=== PATIENT | male | born 1945 | race Caucasian/White ===

== ENCOUNTER → 2023-12-23 06:52 | Outpatient (REF) | payer MEDICARE, OTHER, SELFPAY ==
[2023-12-23 07:37] LABS: % Basophils 0.7 % (0-2); % Eosinophils 2.8 % (0-6); % Immature Granulocytes 0.6 % (0-0.5); % Lymphocytes 26.4 % (20.5-51.1); % Neutrophils 53.5 % (42.2-75.2); Absolute Basophils 0.1 10^3/uL (0-0.2); Absolute Eosinophils 0.2 10^3/uL (0-0.7); Absolute Lymphocytes 1.8 10^3/uL (1.2-3.4); Absolute Monocytes 1.1 10^3/uL (0.1-0.6); Absolute Neutrophils 3.6 10^3/uL (1.4-6.5); Hematocrit 34.8 % (39.0-52.0); Hemoglobin 11.5 g/dL (13.0-18.0); Mean Corpuscular Hgb 33.2 pg (27.0-31.0); Mean Corpuscular Volume 100.6 fL (80.0-94.0); Mean Platelet Volume 10.5 fL (7.4-10.4); Nucleated Red Blood Cells % 0 % (-); Platelet Count 168 10^3/uL (130-400); Red Blood Cell Count 3.46 10^6/uL (4.70-6.10); Red Cell Dist. Width 13.1 % (11.5-14.5); White Blood Cell Count 6.7 10^3/uL (4.8-10.8)
[2023-12-23 07:59] LABS: Calcium 9.2 mg/dl (8.4-10.2)
[2023-12-23 08:00] LABS: ALT (SGPT) 18 U/L (0-50); AST (SGOT) 19 U/L (17-59); Albumin 3.9 g/dl (3.5-5.0); Alkaline Phosphatase 56 U/L (38-126); Blood Urea Nitrogen 46 mg/dl (9-20); Calcium 8.8 mg/dl (8.4-10.2); Carbon Dioxide 24 mmol/L (22-30); Chloride 105 mmol/L (98-107); Glucose 224 mg/dl (70-99); Phosphorus 3.7 mg/dl (2.5-4.5); Potassium 4.9 mmol/L (3.5-5.1); Sodium 135 mmol/L (135-145); Total Bilirubin 0.5 mg/dl (0.2-1.3); Total Protein 6.2 g/dl (6.3-8.2)
[2023-12-23 08:56] LABS: Glycohemoglobin (HgbA1c) 7.8 % (4.0-5.6)
[2023-12-23 09:16] LABS: Intact PTH 300.3 pg/ml (13.6-85.8)
== END ==
LOC: REG 06:52
PROVIDERS: ATTENDING PHYSICIAN Family Medicine; FAMILY PHYSICIAN Specialist
DX: E11.22 Type 2 diabetes mellitus with diabetic chronic kidney disease (principal); N20.0 Calculus of kidney
CPT/HCPCS: 36415; 80053; 80069; 83036; 83970; 84550; 85025

== ENCOUNTER 2024-01-26 03:36 | Emergency (ER) | payer MEDICARE, OTHER, SELFPAY ==
[2024-01-26] VITALS (7 sets, daily range): BP systolic 125–175; BP diastolic 58–72; BMI 41.5
[2024-01-26 03:44] LABS: Glucose - Point of Care 111 mg/dl (70-99)
[2024-01-26 03:57] LABS: % Basophils 0.4 % (0-2); % Eosinophils 2.8 % (0-6); % Immature Granulocytes 0.3 % (0-0.5); % Lymphocytes 27.5 % (20.5-51.1); % Monocytes 13.8 % (1.7-9.3); % Neutrophils 55.2 % (42.2-75.2); Absolute Eosinophils 0.2 10^3/uL (0-0.7); Absolute Lymphocytes 1.9 10^3/uL (1.2-3.4); Absolute Neutrophils 3.8 10^3/uL (1.4-6.5); Hematocrit 33.5 % (39.0-52.0); Hemoglobin 11.4 g/dL (13.0-18.0); Mean Corpuscular Hgb 33.2 pg (27.0-31.0); Mean Corpuscular Volume 97.7 fL (80.0-94.0); Mean Platelet Volume 9.7 fL (7.4-10.4); Nucleated Red Blood Cells % 0 % (-); Platelet Count 160 10^3/uL (130-400); Red Blood Cell Count 3.43 10^6/uL (4.70-6.10); Red Cell Dist. Width 13.1 % (11.5-14.5); White Blood Cell Count 6.9 10^3/uL (4.8-10.8)
[2024-01-26 04:13] LABS: ALT (SGPT) 18 U/L (0-50); AST (SGOT) 19 U/L (17-59); Albumin 3.8 g/dl (3.5-5.0); Alkaline Phosphatase 59 U/L (38-126); Blood Urea Nitrogen 62 mg/dl (9-20); Carbon Dioxide 26 mmol/L (22-30); Chloride 103 mmol/L (98-107); Estimated Creatinine Clearance 28 ml/min; Glucose 111 mg/dl (70-99); Potassium 4.2 mmol/L (3.5-5.1); Sodium 137 mmol/L (135-145); Total Bilirubin 0.5 mg/dl (0.2-1.3); Total Protein 6.2 g/dl (6.3-8.2); eGFR 24.02
--- NOTE | 2024-01-26 05:57 | ED.GENMED ---
History of Present Illness
General
Chief Complaint: Blood Sugar Problem
Time Seen by Provider: 01/26/24 05:57
Travel History
Have you had any contact with someone who has COVID-19?: No
Do you have any symptoms of coronavirus? Fever > 100 degrees, chills, cough, shortness of breath, sore throat, loss of taste or smell, muscle aches, or headache?: No
History of Present Illness
History of Present Illness:
HPI: The patient presents with a syncopal event. This happened around 3 AM. He states that he is an insulin-dependent diabetic and had a lot to eat last night but primarily seafood (lot of protein with minimal carbohydrates). He noted that his
blood sugar was lower than normal prior to bedtime. At 3 AM he got up to go to the bathroom but noted that he fell to the ground and passed out. He remembers not having any chest pain or shortness of breath. Around the time this happened, he
was given a Elmer tablet and blood sugar was found to be in the 200s.
EXAM:
GENERAL: Well appearing in no distress
HEENT: Moist oral mucosa
CARDIOVASCULAR: No murmurs, normal heart rate, regular rhythm, No chest wall tenderness
PULMONARY: No respiratory distress, breath sounds are clear and equal
ABDOMEN: Soft with no peritoneal signs, no tenderness
NEUROLOGIC: Excellent strength all extremities, no coordination deficits
PSYCHIATRIC: Appropriate mental status, normal insight and judgement
EXTREMITIES: Nontender, 2+ bilateral lower edema, moves all extremities equally
SKIN: No rash, no lesions
TIME OF INITIAL ENCOUNTER: 6 AM
NUMBER AND COMPLEXITY OF PROBLEMS ADDRESSED AT THE ENCOUNTER
� Chronic conditions affecting care: High blood pressure, hyperlipidemia, GERD, IDDM, CKD
� Acute Exacerbation and/or Progression of Chronic Illness: This is an acute problem
� Differential Diagnosis includes: Hypoglycemia, hyperglycemia, electrolyte abnormality, dysrhythmia
AMOUNT AND/OR COMPLEXITY OF DATA TO BE REVIEWED AND ANALYZED
� I performed an independent evaluation of and my interpretation is:
EKG: While I was in the room, I reviewed the cardiac monitoring which shows that he is in a sinus rhythm with rates of 69
CT:
X-rays:
Laboratory Studies: Mild anemia noted with hemoglobin 11.4, electrolytes normal but BUN is 62 and creatinine is 2.6
Other:
� Review of other/old records: I reviewed records, the patient's renal function has been impaired since 2018
� Clinical information was obtained by an independent historian: I spoke to the at bedside
� Prescriptions/Medications Considered but not given:
� Further testing considered but not performed:
RISK OF COMPLICATIONS AND/OR MORBIDITY OR MORTALITY OF PATIENT MANAGEMENT
� Social determinants of health affecting care: Lives at home
� Discussion with other providers:
� Escalation of care including admission/observation vs risk of discharge considered: The patient's blood work is unchanged from prior. Other than mild hypertension, his vital signs are normal. He currently has no further
symptoms. He did mention his lower extremity edema however this is chronic. He has remained symptom-free throughout his stay in the ED. He never had any chest pain or shortness of breath.
Past History
Past History
ED Past Medical History: GERD, HTN, Hypercholesterolemia, IDDM and Other (Hemorrhoids)
ED Past Surgical History: Other (Hemorrhoidectomy, vasectomy, tonsillectomy, cataracts)
Social History
Tobacco: Non-smoker
Alcohol: Occasional
Personal:
Living: with family
Family History
Family History: Diabetes and CAD
Phy Exam
Physical Exam
Physical Exam:
See HPI
Course
Orders/Labs/Results
Orders:
Orders
01/26/24 03:41
Bedside Glucose- Treatment ONCE
01/26/24 03:52
CMP [Comprehensive Metabolic Panel] Urgent
Complete Blood Count/With Diff Urgent
Abnormal Lab Results
01/26/24 01/26/24
03:42 03:52
RBC 3.43 L 10^6/uL
(4.70-6.10)
Hgb 11.4 L g/dL
(13.0-18.0)
Hct 33.5 L %
(39.0-52.0)
MCV 97.7 H fL
(80.0-94.0)
MCH 33.2 H pg
(27.0-31.0)
Absolute Monos (auto) 1.0 H 10^3/uL
(0.1-0.6)
Monocytes % 13.8 H %
(1.7-9.3)
BUN 62 H mg/dl
(9-20)
Creatinine 2.6 H mg/dL
(0.7-1.3)
Glucose 111 H mg/dl
(70-99)
Total Protein 6.2 L g/dl
(6.3-8.2)
POC Glucose 111 H mg/dl
(70-99)
01/26/24 03:52
01/26/24 03:52
Vital Signs
Initial and Last Documented VS:
Initial Vital Signs
Temp Pulse Resp BP Pulse Ox
98 F 70 14 175/72 95
01/26/24 03:40 01/26/24 03:40 01/26/24 03:40 01/26/24 03:40 01/26/24 03:40
Last Documented Vital Signs
Temp Pulse Resp BP Pulse Ox
98 F 65 18 145/68 95
01/26/24 03:40 01/26/24 06:00 01/26/24 06:00 01/26/24 06:00 01/26/24 03:40
*Critical Care Note
Total Time (30-74mins, 75-104mins- exclusive of procedures): Not Applicable
ED Attending Note
-
Portions of this chart may have been created with voice recognition software.� Occasional wrong word or��sound alike� substitutions may have occurred due to the inherent limitations of voice recognition software.
Discharge Plan
Departure
Patient Disposition: Home (Routine Discharge)
Date of Disposition: 01/26/24
Time of Disposition: 06:17
Patient with high blood pressure during this ER visit?: Yes
Discharge Problem:
Syncope and collapse
Instructions: Syncope (Fainting) (DC)
Prescriptions:
No Action
furosemide 40 MG tablet
40 mg PO DAILY
atorvastatin 40 MG tablet
40 mg PO HS
aspirin 81 MG tablet,delayed release (DR/EC)
81 mg PO QPM
acetaminophen [Tylenol Extra Strength] 500 MG tablet
1,000 mg PO DAILYPRN PRN (Reason: mild pain)
potassium citrate 10 MEQ tablet extended release
10 meq PO BID
labetalol 300 MG tablet
300 mg PO BID
terazosin [Hytrin] 10 MG capsule
10 mg PO DAILY
insulin lispro [Humalog KwikPen Insulin] 100 UNIT/ML insulin pen
60 units SC QPM
Patient Comments:
dinner dose
insulin lispro [Humalog KwikPen Insulin] 100 UNIT/ML insulin pen
30 units SC BID@0800,1200
cholecalciferol (vitamin D3) 1,000 UNITS tablet
1,000 units PO DAILY
insulin glargine [Lantus Solostar U-100 Insulin] 300 UNITS/3 ML insulin pen
40 units SC BID
Patient Comments:
pt takes at 0600 and 1600
Mucilax
1 dose PO BID
amoxicillin-pot clavulanate 1 TABLET tablet
1 tab PO Q12 3 Days Qty: 5 0RF
Referrals:
Steven Spann MD [Family Provider] -
Activity Restrictions/Additional Instructions:
Follow-up with primary care doctor. Return here if worse. Your blood work shows no significant changes from prior.
Interventions
Interventions:
*Risk Screen - Suicide Last Done: 01/26/24 03:40
*General Assessment Last Done: 01/26/24 03:40
*Neglect/Abuse Screening Last Done: 01/26/24 03:40
ED- Fall Risk Assessment Last Done: 01/26/24 03:40
*ED COVID-19 Vaccine History Last Done: 01/26/24 03:40
ED- Neurological Assessment Last Done: 01/26/24 03:47
== END 2024-01-26 06:40 | disposition home or self-care (01) ==
LOC: EMR 03:36
PROVIDERS: Student in an Organized Health Care Education/Training Program; EMERGENCY PHYSICIAN Emergency Medicine; FAMILY PHYSICIAN Family Medicine
DX: R55 Syncope and collapse (principal); R60.0 Localized edema; K21.9 Gastro-esophageal reflux disease without esophagitis; E78.00 Pure hypercholesterolemia, unspecified; E11.22 Type 2 diabetes mellitus with diabetic chronic kidney disease; N18.9 Chronic kidney disease, unspecified; I12.9 Hypertensive chronic kidney disease with stage 1 through stage 4 chronic kidney disease, or unspecified chronic kidney disease; D64.9 Anemia, unspecified
CPT/HCPCS: 99283; 80053; 82962; 85025

== ENCOUNTER 2024-02-22 23:17 | Inpatient (IN) | payer MEDICARE, OTHER, SELFPAY ==
[2024-02-22] VITALS (8 sets, daily range): BP systolic 110–141; BP diastolic 44–75; BMI 40.1; BMI 41.1
--- NOTE | 2024-02-22 19:08 | ED.GENMED ---
History of Present Illness
General
Chief Complaint: Breathing Problem
Time Seen by Provider: 02/22/24 18:49
Travel History
Have you had any contact with someone who has COVID-19?: No
Do you have any symptoms of coronavirus? Fever > 100 degrees, chills, cough, shortness of breath, sore throat, loss of taste or smell, muscle aches, or headache?: Yes
Symptoms:: SOB
History of Present Illness
History of Present Illness:
79-year-old male with history of insulin-dependent diabetes, morbid obesity, hypertension, and chronic kidney disease presents to the emergency department due to fevers and chills/rigors developing over the past 48 hours. Patient states he has had
tooth pain for at least the past week,, was scheduled to get a root canal by his dentist earlier this week however this was delayed for unknown reasons. He is not currently on antibiotics. Denies any coughing, chest pain, dysuria, rashes, or open
wounds. He does have chronic venous stasis of bilateral lower extremities but states it is improved compared to normal
Past History
Past History
ED Past Medical History: GERD, HTN, Hypercholesterolemia, IDDM and Other (Hemorrhoids)
ED Past Surgical History: Other (Hemorrhoidectomy, vasectomy, tonsillectomy, cataracts)
Social History
Tobacco: Non-smoker
Alcohol: Occasional
Personal:
Living: with family
Family History
Family History: Diabetes and CAD
Review of Systems
Review of Systems
Allergies reviewed?: Yes
All Other Systems: ROS reviewed and negative except as documented in HPI and ROS
Phy Exam
Physical Exam
Physical Exam:
GEN: Well appearing, NAD, WDWN
Eyes: PERRLA, EOMs intact, no scleral icterus
HENT: NCAT, oral mucosa moist, no JVD, no cervical adenopathy. Dentition is poor, no obvious dental abscess
Lungs: CTAB, no wheezes, rales, rhonchi, normal chest wall excursion
Cardiac: Tachycardic, regular, questionable systolic murmur
Abdomen: S, NT, ND, NABS, no masses or hepatosplenomegaly
Neuro: AO x 3
MSK: No gross deformity or ecchymosis. No edema. No digital clubbing
Skin: Bilateral venous stasis dermatitis without evidence for overt cellulitis/secondary infection
Psych: Calm, cooperative, proper hygiene
Scores
Heart Failure Risk
Heart Failure Risk Score: Not Applicable
Course
Orders/Labs/Results
Orders:
Orders
02/22/24 18:55
Electrocardiogram (*1) Urgent
Reason for Study: Other
Other Reason for Exam: Possible Sepsis
02/22/24 18:56
EKG- Treatment ONCE
02/22/24 18:58
Complete Blood Count/With Diff Urgent
Comprehensive Metabolic Panel Urgent
Lactic Acid Q4H
Comment: ON ICE, CANCEL 2ND ORDER IF FIRST LACTIC ACID LEVEL <2
Blood Culture Q30M
JACKIE Source: Blood/Venous
Specimen Description:
Comment: FROM 2 SEPARATE SITES
Blood Culture Q30M
JACKIE Source: Blood/Venous
Specimen Description:
Comment: FROM 2 SEPARATE SITES
02/22/24 19:08
CR Chest - 2 Views Urgent
Comment:
Reason For Exam: fever
02/22/24 19:26
COVID-19 Antigen Urgent
Source: Nasal Swab
Influenza A+B Rapid Molecular Urgent
JACKIE Source: Nasal Swab
Specimen Description:
02/22/24 19:27
0.9% Sodium Chloride 1000 ml [Nss] 1,000 ml IV BOLUS
02/22/24 20:05
Acetaminophen [Tylenol] 1,000 mg PO NOW STA
02/22/24 20:22
Urinalysis Reflex To Culture Urgent
Date Specimen was Collected: 02/22/24
Time Specimen was Collected: 19:24
Urine Microscopic Reflex Cult Urgent
02/22/24 20:28
CT Facial Bones W/o Iv Contras Urgent
Comment:
Reason For Exam: R dental infection lower
02/22/24 21:39
Ampicillin/Sulbactam 3 G [Unasyn] 3 gm 0.9% Sodium Chloride 100 ml [Nss] 100 ml IV NOW
02/22/24 22:05
Ondansetron Injectable [Zofran] 4 mg .ROUTE .[facility]
02/22/24 22:50
Admit/Transfer Patient As Directed
Co-Sign Provider:
Level of Care: Inpatient admission
Assign to:: Medical/Surgical
Physician / Group: hospitalist
Diagnosis: dental abscess
Reason for Hospitalization: sepsis without shock
Expected length of stay greater than two midnights?: Yes
ELOS- Estimated Length of Stay in days: 2
I certify the patient meets the requirements for IP care: Yes
02/22/24 22:52
Code Status As Directed
Resuscitation Status: Full Code
02/22/24 23:04
Lactic Acid Q4H
Comment: ON ICE, CANCEL 2ND ORDER IF FIRST LACTIC ACID LEVEL <2
Abnormal Lab Results
02/22/24 02/22/24
18:58 20:22
RBC 3.60 L 10^6/uL
(4.70-6.10)
Hgb 11.8 L g/dL
(13.0-18.0)
Hct 33.7 L %
(39.0-52.0)
MCH 32.8 H pg
(27.0-31.0)
Plt Count 127 L 10^3/uL
(130-400)
Abs Immat Gran (auto) 0.1 H 10^3/uL
(0-0.05)
Absolute Lymphs (auto) 0.3 L 10^3/uL
(1.2-3.4)
Absolute Monos (auto) 0.9 H 10^3/uL
(0.1-0.6)
Immature Gran % 1.0 H %
(0-0.5)
Neutrophils % 79.6 H %
(42.2-75.2)
Lymphocytes % 4.9 L %
(20.5-51.1)
Monocytes % 13.7 H %
(1.7-9.3)
Sodium 133 L mmol/L
(135-145)
BUN 59 H mg/dl
(9-20)
Creatinine 3.0 H mg/dL
(0.7-1.3)
Glucose 205 H mg/dl
(70-99)
Lactic Acid 3.8 H mmol/L
(0.7-2.0)
Total Protein 6.2 L g/dl
(6.3-8.2)
Urine Ketones Trace A
(Negative)
Leukocyte Esterase Rfl Trace A
(Negative)
Urine Bacteria (Reflex) Few A
(Negative)
Urine Glucose 1+ A
(Negative)
Urine Albumin (Reflex) 1+ A
(Neg - Trace)
02/22/24 18:58
02/22/24 18:58
Vital Signs
Initial and Last Documented VS:
Initial Vital Signs
Temp Pulse Resp BP Pulse Ox
103.2 F H 104 20 137/75 93
02/22/24 18:39 02/22/24 18:39 02/22/24 18:39 02/22/24 18:39 02/22/24 18:39
Last Documented Vital Signs
Temp Pulse Resp BP Pulse Ox
99.9 F 85 24 113/44 94
02/22/24 21:31 02/22/24 23:00 02/22/24 23:00 02/22/24 23:00 02/22/24 23:15
MDM/Problems Addressed
MDM/Problems Addressed:
79-year-old male presents febrile with rigors, source is most likely right lower dental abscess. Certainly concerning considering migration and his immunocompromise with insulin-dependent diabetes that this can represent bacteremia. I do not hear
an audible murmur however cannot discount the possibility for endocarditis. Patient will be admitted to the hospital service on broad-spectrum IV antibiotics
*Critical Care Note
Total Time (30-74mins, 75-104mins- exclusive of procedures): Not Applicable
ED Attending Note
-
Portions of this chart may have been created with voice recognition software.� Occasional wrong word or��sound alike� substitutions may have occurred due to the inherent limitations of voice recognition software.
Discharge Plan
Departure
Patient Disposition: Admit
Date of Disposition: 02/22/24
Time of Disposition: 22:09
Admit to: Med/Surg
Presentation/result/management discussed w/ accepting MD/DO: Hospitalist
Discharge Problem:
Dental abscess
Interventions
Interventions:
*Risk Screen - Suicide Last Done: 02/22/24 21:32
*General Assessment Last Done: 02/22/24 21:32
*Neglect/Abuse Screening Last Done: 02/22/24 21:32
ED- Fall Risk Assessment Last Done: 02/22/24 21:32
*ED COVID-19 Vaccine History Last Done: 02/22/24 21:32
ED- Cardiac Assessment Last Done: 02/22/24 23:15
ED- Pulmonary Assessment Last Done: 02/22/24 23:15
[2024-02-22 19:09] LABS: % Basophils 0.4 % (0-2); % Eosinophils 0.4 % (0-6); % Lymphocytes 4.9 % (20.5-51.1); % Monocytes 13.7 % (1.7-9.3); % Neutrophils 79.6 % (42.2-75.2); Absolute Immature Granulocytes 0.1 10^3/uL (0-0.05); Absolute Lymphocytes 0.3 10^3/uL (1.2-3.4); Absolute Monocytes 0.9 10^3/uL (0.1-0.6); Absolute Neutrophils 5.4 10^3/uL (1.4-6.5); Hematocrit 33.7 % (39.0-52.0); Hemoglobin 11.8 g/dL (13.0-18.0); Mean Corpuscular Hgb 32.8 pg (27.0-31.0); Mean Corpuscular Volume 93.6 fL (80.0-94.0); Mean Platelet Volume 10.2 fL (7.4-10.4); Nucleated Red Blood Cells % 0 % (-); Platelet Count 127 10^3/uL (130-400); White Blood Cell Count 6.8 10^3/uL (4.8-10.8)
[2024-02-22 19:20] LABS: Lactic Acid 3.8 mmol/L (0.7-2.0)
[2024-02-22 19:22] LABS: ALT (SGPT) 36 U/L (0-50); AST (SGOT) 47 U/L (17-59); Albumin 3.9 g/dl (3.5-5.0); Alkaline Phosphatase 63 U/L (38-126); Blood Urea Nitrogen 59 mg/dl (9-20); Calcium 9.5 mg/dl (8.4-10.2); Carbon Dioxide 23 mmol/L (22-30); Chloride 99 mmol/L (98-107); Estimated Creatinine Clearance 24 ml/min; Glucose 205 mg/dl (70-99); Sodium 133 mmol/L (135-145); Total Bilirubin 0.7 mg/dl (0.2-1.3); Total Protein 6.2 g/dl (6.3-8.2); eGFR 20.23
[2024-02-22] MEDS: NSS 1000 IV (19:59)
[2024-02-22] MEDS: TYLENOL 1000 MG PO (20:14)
[2024-02-22 20:48] LABS: COVID-19 Antigen Negative (Negative)
[2024-02-22 20:53] LABS: Urine Albumin 1+ (Neg - Trace); Urine Bilirubin Negative (Negative); Urine Character Clear (Clear); Urine Color Yellow; Urine Glucose 1+ (Negative); Urine Ketone Trace (Negative); Urine Leukocyte Trace (Negative); Urine Nitrite Negative (Negative); Urine Occult Blood Negative (Negative); Urine Urobilinogen Negative (Neg - 1+)
[2024-02-22 21:21] LABS: Urine Bacteria Few (Negative); Urine Granular Cast 0-2 /LPF (0); Urine Mucus Moderate; Urine Red Blood Cell 0-2 /HPF (0-2); Urine White Cell 0-2 /HPF (0-5)
[2024-02-22] MEDS: UNASYN IV (21:51)
--- NOTE | 2024-02-22 22:34 | HPS.HSE ---
Family Physician
-
Family Physician: Steven Spann
Chief Complaint
-
Tooth abscess
History of Present Illness
This is a patient male with past medical history of CKD stage IV, hypertension, GERD, insulin-dependent diabetes presenting to the emergency department with tooth pain for the last 3 to 4 days consistent with a dental abscess.
Patient reported that there was plan to have a root canal done on his right lower tooth on Friday However for the last 3 days has been having severe pain in that tooth and associated fevers chills and rigors. He reports he has had prior infections
and abscesses and this was very similar to those prior infections. Had Tmax of 103 at home. Denies cough, wheezing or shortness of breath.
In ED had a temperature of 103. Hemodynamically stable. Chest Xray was clear. CT facial showed suspected 3.2 mm dental abscess around the root of the right mandibular central incisor. Mild cellulitis in the soft tissues overlying the anterior
mandible.
Medical History
Past Medical History
Past Medical History: Reports GERD, HTN and IDDM
Additional Past Medical History:
CKD 4
Past Surgical History: Reports None
Social History
Tobacco: Non-smoker
Alcohol: Occasional
Drug: None
Personal:
Living: With Family
Employment: Retired
Family History
Family History: Not pertinent
Allergies / Home Medications
Allergies reflects when Allergies were last updated in [employer].
Home Medications with original date entered in [employer]
Allergy/Medication List:
Allergies
Allergy/AdvReac Type Severity Reaction Status Date / Time
quinapril [From Accupril] Allergy EDEMA/HIVES Verified 01/26/24 03:43
Home Medications
Mucilax 1 dose PO BID Constipation 01/22/21
acetaminophen 500 mg tablet (Tylenol Extra Strength) 1,000 mg PO DAILYPRN PRN mild pain 01/22/21
aspirin 81 mg tablet,delayed release 81 mg PO QPM Blood clot prevention/tx 01/22/21
atorvastatin 40 mg tablet 40 mg PO HS High cholesterol 01/22/21
cholecalciferol (vitamin D3) 25 mcg (1,000 unit) tablet 1,000 units PO DAILY Supplement 01/22/21
furosemide 40 mg tablet 40 mg PO DAILY Fluid retention/Swelling 01/22/21
insulin glargine 100 unit/mL (3 mL) subcutaneous pen (Lantus Solostar U-100 Insulin) 40 units SC BID Diabetes 01/22/21
insulin lispro 100 unit/mL subcutaneous pen (Humalog KwikPen (U-100) Insulin) 30 units SC BID@0800,1200 Diabetes 01/22/21
insulin lispro 100 unit/mL subcutaneous pen (Humalog KwikPen (U-100) Insulin) 60 units SC QPM Diabetes 01/22/21
labetalol 300 mg tablet 300 mg PO BID Blood pressure 01/22/21
potassium citrate 10 mEq (1,080 mg) tablet,extended release 10 meq PO BID Electrolyte Repletion 01/22/21
terazosin 10 mg capsule (Hytrin) 10 mg PO DAILY prostate 01/22/21
amoxicillin 875 mg-potassium clavulanate 125 mg tablet 1 tab PO Q12 3 days #5 tabs 01/24/21
Review of Systems
-
History Source: Patient
Constitutional: Reports Fever
EENT: Reports Mouth Pain
Respiratory: Reports No Symptoms
Cardiac: Reports No Symptoms
Abdomen/GI: Reports No Symptoms
: Reports No Symptoms
Musculoskeletal: Reports No Symptoms
Skin: Reports No Symptoms
Neurological: Reports No Symptoms
Endocrine: Reports No Symptoms
Hematologic/Lymphatic: Reports No Symptoms
Psych: Reports No Symptoms
Physical Exam
Vital Signs
Vital Signs
Temp Pulse Resp BP Pulse Ox
99.9 F 89 21 110/50 93
02/22/24 21:31 02/22/24 22:30 02/22/24 22:30 02/22/24 21:30 02/22/24 21:45
Physical Exam
General: Appears in Distress
HEENT: NormoCephalic, Anicteric, Moist mucous membranes, Atraumatic, PERRLA, [place] Conjunctivae, Neck Nontender and Other (poor dentition)
Respiratory: Clear
Cardiac: S1/S2 and Regular Rhythm
Breast: Deferred by me
GI: Soft, Non Tender and Normal Bowel Sounds
Rectal: Deferred by Provider
Genito-urinary: Deferred by me
Musculoskeletal: No Clubbing, No Cyanosis, Edema, Left Lower Extremity and Edema, Right Lower Extremity
Skin: Warm and Dry
Neuro: AO x 3
Hematologic/Lymphatic: No Lymphadenopathy
Psych: Calm
Laboratory Results
-
02/22/24 18:58
02/22/24 18:58
Laboratory Results
Lactic Acid 3.8 mmol/L (0.7-2.0) H 02/22/24 18:58
Total Bilirubin 0.7 mg/dl (0.2-1.3) 02/22/24 18:58
AST 47 U/L (17-59) 02/22/24 18:58
ALT 36 U/L (0-50) 02/22/24 18:58
Alkaline Phosphatase 63 U/L (38-126) 02/22/24 18:58
Data Reviewed
-
Diagnostic Radiology: Image Personally Visualized and interpreted and Report Reviewed by me
CT Scan: Report Reviewed by me
Lab Data: Labs Reviewed by me
Old Records: Reviewed
Impression/Plan
-
IMPRESSION:
79 y.o male with right lower molar dental abscess with signs of systemic infection. Febrile to 103 at home with rigors and chills. No leukocytosis. CT scan c/w the abscess.
PLAN:
1. Dental Abscess -
- blood cultures if febrile
- IV unasyn 3g q 12 (renal dosing) to cover strep anginosus and anaerobes
- ED consulted OMF
- pain control
- held labetalol tonight
- holding lasix
2. DM II -
- lantus 40 am and pm
- aspart 35 35 and 50
- moderate sliding scale coverage
3. CKD4 - Diabetic renal disease. Cr at the upper limit of his trends.
- renal dose medications
- avoid nephrotoxins
- holding lasix 40mg daily for now
4. HTN
- labetolol 300 mg bid with hold parameters
DVT PPX - heparin sq
Full Code
[2024-02-22 23:24] LABS: Lactic Acid 1.5 mmol/L (0.7-2.0)
--- NOTE | 2024-02-22 23:57 | PTCARENOTE ---
Pt arrived from ED via stretcher and stand and pivot to bed. Pt is AAOx3, VSS, w/o complaints of pain, w/ a glucose monitor on Pt R upper arm. Pt is oriented to room resting comfortably w/ call fine within reach.
[2024-02-23] MEDS: HEPARIN 5000 UNITS SC ×3 (00:29→16:55)
[2024-02-23] MEDS: TYLENOL 650 MG PO ×4 (04:14→21:12)
[2024-02-23 05:02] LABS: Hematocrit 34.6 % (39.0-52.0); Hemoglobin 11.4 g/dL (13.0-18.0); Mean Corp Hgb Conc. 32.9 g/dL (33.0-37.0); Mean Corpuscular Hgb 32.5 pg (27.0-31.0); Mean Corpuscular Volume 98.6 fL (80.0-94.0); Mean Platelet Volume 10.3 fL (7.4-10.4); Platelet Count 113 10^3/uL (130-400); Red Blood Cell Count 3.51 10^6/uL (4.70-6.10); Red Cell Dist. Width 13.2 % (11.5-14.5); White Blood Cell Count 7.7 10^3/uL (4.8-10.8)
[2024-02-23 05:43] LABS: Blood Urea Nitrogen 58 mg/dl (9-20); Carbon Dioxide 23 mmol/L (22-30); Chloride 103 mmol/L (98-107); Estimated Creatinine Clearance 24 ml/min; Glucose 277 mg/dl (70-99); Sodium 133 mmol/L (135-145); eGFR 20.23
[2024-02-23 07:00] VITALS: BP 143/61
[2024-02-23 08:31] LABS: Glucose - Point of Care 259 mg/dl (70-99)
[2024-02-23] MEDS: NOVOLOG FLEXPEN 35 UNITS SC ×2 (08:51→12:40)
[2024-02-23] MEDS: NOVOLOG FLEXPEN-MODERATE RESISTANCE 5 UNITS SC ×2 (08:51→12:40)
[2024-02-23] MEDS: HYTRIN 10 MG PO (08:51)
[2024-02-23] MEDS: LANTUS 0.400000000000000022 UNITS SC (08:52)
[2024-02-23] MEDS: TRANDATE 300 MG PO ×2 (08:53→19:52)
[2024-02-23] MEDS: UNASYN IV ×2 (09:54→21:12)
[2024-02-23 10:43] LABS: Glucose - Point of Care 279 mg/dl (70-99)
--- NOTE | 2024-02-23 11:39 | W.PN.HOSP.TC ---
Today's Communication/Plan
-
Continue with Unasyn
Await OMFS evaluation
Assessment / Plan
Assessment / Plan
79 y.o male with right lower molar dental abscess with signs of systemic infection. Febrile to 103 at home with rigors and chills. No leukocytosis. CT scan c/w the abscess.
PLAN:
1. Dental Abscess -
- Ongoing low grade fevers ; wbc ok; Blood cx pending.
- cw IV unasyn 3g q 12 (renal dosing) to cover strep anginosus and anaerobes
- consulted OMF
- pain control
2. DM II -
- lantus 40 am and pm
- aspart 35 35 and 50
- moderate sliding scale coverage
3. CKD4 - Diabetic renal disease. Cr at the upper limit of his trends.
- renal dose medications
- avoid nephrotoxins
- cw lasix once med rec is complete
4. HTN
- labetolol 300 mg bid with hold parameters
DVT PPX - heparin sq
Full Code
Anticipated Discharge: 24 - 48 hours
Subjective/Interval History
-
Date of Service: February 23, 2024
Denies chills. Low-grade fever this morning.
Right lower tooth ache as before without any worsening.
No sweats.
No nausea or vomiting.
Objective Data
-
Labs:
Laboratory Results
02/23/24
04:16
WBC 7.7
Hgb 11.4 L
Hct 34.6 L
Plt Count 113 L
Sodium 133 L
Potassium 5.0
Chloride 103
Carbon Dioxide 23
BUN 58 H
Creatinine 3.0 H
Glucose 277 H
Calcium 9.0
Vital Signs:
Vital Signs
Temp Pulse Resp BP Pulse Ox
100.3 F 85 18 143/61 96
02/23/24 10:00 02/23/24 08:53 02/23/24 07:00 02/23/24 08:53 02/23/24 07:00
I&O
02/22/24 02/23/24 02/24/24
06:59 06:59 06:59
Intake Total 960 / 960
Balance 960 / 960
Review of Systems
-
Constitutional: Reports Fever
EENT: Denies Sore Throat
Respiratory: Denies Cough or Trouble Breathing
Cardiac: Denies Chest Pain
Abdomen/GI: Denies Abdominal Pain, Nausea or Vomiting
Neuro: Denies Dizzy
Physical Exam
-
General: No Apparent Distress
HEENT: Moist Mucous Membranes and Other (rt second bicuspid tender ; mild gum swelling)
Respiratory: Clear to Auscultation
Cardiac: Regular Rhythm and S1/S2
GI: Soft
Neuro: AO x 3
Psych: Calm; Negative Confused
Data Reviewed
-
Labs: Labs Reviewed by me
[2024-02-23 12:28] VITALS: BP 113/78
[2024-02-23] MEDS: NOVOLOG FLEXPEN SC (12:38)
--- NOTE | 2024-02-23 13:46 | CON.ORS ---
Consultation - Oral Surgery
Subjective
79year old male with hx of CKD, DM, HTN presenting with dental pain likelye 2/2 known caruos #25. Pt was planned for root canal by outside dentist but presented to ED for pain control. Admitted 2/2 pain and fevers, now resolved. Pt. endorses pain
in the area, no difficutly swallowing, no difficulty speaking, no difficulty managing secretions.
Past Medical History
Past Medical History: HTN, IDDM and Other
Medications / Allergies
Allergies
Allergy/AdvReac Type Severity Reaction Status Date / Time
quinapril [From Accupril] Allergy EDEMA/HIVES Verified 02/22/24 22:51
Active Medications
Generic Name Dose Route Start Last Admin
Trade Name Freq PRN Reason Stop Dose Admin
Acetaminophen 650 mg 02/22/24 23:55 02/23/24 08:50
Acetaminophen 325 Mg Tablet PO 03/21/24 23:54 650 mg
Q4HPRN PRN Administration
mild pain/CHAVEZ/temp> 100.4F
Atorvastatin Calcium 40 mg 02/23/24 22:00
Atorvastatin (Lipitor) 40 Mg Tablet PO 03/22/24 21:59
HS NIKKI
Bisacodyl 10 mg 02/22/24 23:55
Bisacodyl 10 Mg Rectal Suppository RECTAL 03/21/24 23:54
[id number] PRN
constipation
Heparin Sodium 5,000 units 02/23/24 00:00 02/23/24 08:49
Heparin 5,000 Units/Ml 1 Ml Vial SC 03/22/24 00:00 5,000 units
Q8 NIKKI Administration
Hydromorphone HCl 0.5 mg 02/22/24 23:55
Hydromorphone 0.5 Mg/0.5 Ml Syringe IV 03/07/24 23:54
Q4HPRN PRN
severe pain
Ampicillin Sodium/Sulbactam 120 mls @ 240 mls/hr 02/23/24 10:00 02/23/24 09:54
Sodium 3 gm/ Sodium Chloride IV 120 mls
Q12H NIKKI Administration
Insulin Glargine 40 units/ 0.4 mls @ 0 mls/hr 02/23/24 20:00
Device SC 03/22/24 19:59
BID NIKKI
As Directed
Insulin Aspart 0 units 02/23/24 07:30 02/23/24 12:40
Insulin Aspart Moderate Resistance 300 Units/3 Ml Pen.Injctr SC 03/22/24 07:29 5 units
AC NIKKI Administration
Protocol
Insulin Aspart 35 units 02/24/24 07:00
Insulin Aspart (100 Units/Ml) 3 Ml Flexpen SC 03/23/24 06:59
DAILY@0700 NIKKI
Insulin Aspart 35 units 02/23/24 12:00 02/23/24 12:40
Insulin Aspart (100 Units/Ml) 3 Ml Flexpen SC 03/22/24 11:59 35 units
DAILY@1100 NIKKI Administration
Insulin Aspart 50 units 02/23/24 17:00
Insulin Aspart (100 Units/Ml) 3 Ml Flexpen SC 03/22/24 16:59
DAILY@1700 NIKKI
Labetalol HCl 300 mg 02/23/24 08:00 02/23/24 08:53
Labetalol 100 Mg Tablet PO 03/22/24 07:59 300 mg
BID NIKKI Administration
Ondansetron HCl 4 mg 02/22/24 23:55
Ondansetron 4 Mg/2 Ml Vial IV 03/21/24 23:54
Q6HPRN PRN
NAUSEA/VOMITING
Polyethylene Glycol 17 grams 02/22/24 23:55
Polyethylene Glycol Powder 17 Grams Packet PO 03/21/24 23:54
DAILYPRN PRN
constipation
Senna/Docusate Sodium 1 tablet 02/22/24 23:55
Docusate W/Senna (Crystal-Colace) Tablet PO 03/21/24 23:54
BIDPRN PRN
constipation
Sodium Chloride 0 flush 02/22/24 23:00
Sodium Chloride 0.9% (Flush) Syringe IV 03/21/24 22:59
PER PROTOCOL NIKKI
Terazosin HCl 10 mg 02/23/24 08:00 02/23/24 08:51
Terazosin 5 Mg Capsule PO 03/22/24 07:59 10 mg
DAILY NIKKI Administration
Review of Systems
Constitutional: Reports No Symptoms
Eyes: Reports No Symptoms
ENT: Reports No Symptoms
Cardiovascular: Reports No Symptoms
Vital Signs
Temp Pulse Resp BP Pulse Ox
36.6 C 78 14 113/78 98
02/23/24 12:28 02/23/24 12:28 02/23/24 12:28 02/23/24 12:28 02/23/24 12:28
Physical Exam
General: Awake, Alert, Oriented x 3 and Not in Acute Distress
Extra-oral Exam: Negative Edema, Erythema, Tenderness to Palpation or Lymphadenopathy
Intra-oral Exam: Edema; Negative Purulent Discharge, Gingival Abscesses or Fistulas, Induration or Fluctuance
Imaging Results
preiapical radioluceney #25 evidence of localized chronic infection, no evidence of acute abscess formation or need for surgical interventions
Assessment / Plan
Pt. with acute on chronic infection associated with #25, no need for acute itnervention
- continue pain control and abx per hospitalist
- will needed to have scheduled root canal treatment or extraction done as an outpatient for definitive souce control
Data Reviewed
Diagnostic Imaging: Image personally visualized and interpreted, Report Reviewed by me, Discussed with Nurse and Discussed with Patient
Labs: Labs Reviewed by me
--- NOTE | 2024-02-23 16:48 | CM ---
Alert awake oriented patient who lives with his Nona who lives in a 2 story home with 2 step to enter and bed and bathroom on first floor. He is independent in driving and in all activities of daily living.He was offered VN he unsure .
[facility] hx / No SNF history
Pharmacy [facility]
PCP DR Spann
PLAN Home unsure of VN need
[2024-02-23 16:51] LABS: Glucose - Point of Care 66 mg/dl (70-99)
[2024-02-23] MEDS: NOVOLOG FLEXPEN-MODERATE RESISTANCE SC (16:57)
--- NOTE | 2024-02-23 16:59 | PTCARENOTE ---
Pt has BS of 66, gave juice and crackers. Notified MD, will recheck BS in 15 minutes, held sliding scale
[2024-02-23 17:16] LABS: Glucose - Point of Care 91 mg/dl (70-99)
[2024-02-23] MEDS: LANTUS 0.25 UNITS SC (17:57)
--- NOTE | 2024-02-23 18:51 | W.PN.OMFS ---
Today's Communication
-
NKDA
Assessment / Plan
-
RESOLVING CELLULITIS
SUGGEST EXTRACTION OR ENDODONTIC TREATMENT UPON DISCHARGE.
STAN BRENNAN, [facility]
Subjective Data
-
PATIENT ADMITTED WITH DENTAL ABSCESS
CONSULT DICTATED
Objective Data
-
Vitals, I&O and Lab Results:
Vital Signs
Temp Pulse Resp BP Pulse Ox
97.8 F 78 14 113/78 98
02/23/24 12:28 02/23/24 12:28 02/23/24 12:28 02/23/24 12:28 02/23/24 12:28
Intake and Output
02/22/24 02/23/24 02/24/24
06:59 06:59 06:59
Intake Total 960 / 960 870 / 870
Balance 960 / 960 870 / 870
Intake:
Oral fluids 960 / 960 870 / 870
Other:
Number of approximated MODERATE 4
amounts of urine
Lab Data
02/23/24 04:16
02/23/24 04:16
Plt Count 113 10^3/uL (130-400) L 02/23/24 04:16
Microbiology
02/22/24 19:26 Influenza Types A & B (MELLISA) - Final
Nasal Swab Negative for Influenza A & B, NAAT
Negative results must be combined with clinical observations
and patient history.
Nucleic Acid Amplification test (NAAT)performed on the
[employer] NOW platform.
02/22/24 18:58 Blood Culture - Pending
Blood/Venous
02/22/24 18:58 Blood Culture - Pending
Blood/Venous
Physical Exam
-
DIFFUSE 1.5 CM SWELLING RIGHT FLOOR OF MOUTH
MILDLY TENDER
LESS PAIN NOW
AVSS
[2024-02-23 19:05] LABS: Glucose - Point of Care 139 mg/dl (70-99)
[2024-02-23 21:09] LABS: Glucose - Point of Care 114 mg/dl (70-99)
[2024-02-23] MEDS: LIPITOR 40 MG PO (21:12)
[2024-02-23] MEDS: HEPARIN SC (23:11)
[2024-02-23 23:17] VITALS: BP 135/70
[2024-02-24 03:07] LABS: Glucose - Point of Care 133 mg/dl (70-99)
[2024-02-24 07:14] LABS: Blood Urea Nitrogen 55 mg/dl (9-20); Calcium 8.7 mg/dl (8.4-10.2); Carbon Dioxide 22 mmol/L (22-30); Chloride 106 mmol/L (98-107); Estimated Creatinine Clearance 26 ml/min; Glucose 121 mg/dl (70-99); Potassium 4.3 mmol/L (3.5-5.1); Sodium 132 mmol/L (135-145); eGFR 22.96
[2024-02-24 08:03] VITALS: BP 132/61
[2024-02-24 08:09] LABS: Glucose - Point of Care 161 mg/dl (70-99)
[2024-02-24] MEDS: HEPARIN SC (08:42)
[2024-02-24] MEDS: TYLENOL 650 MG PO (08:43)
[2024-02-24] MEDS: TRANDATE 300 MG PO (08:43)
[2024-02-24] MEDS: HYTRIN 10 MG PO (08:43)
[2024-02-24] MEDS: LANTUS 0.400000000000000022 UNITS SC (08:44)
[2024-02-24] MEDS: NOVOLOG FLEXPEN-MODERATE RESISTANCE 1 UNITS SC (08:44)
[2024-02-24] MEDS: NOVOLOG FLEXPEN 35 UNITS SC ×2 (08:44→13:00)
[2024-02-24] MEDS: UNASYN IV (10:01)
[2024-02-24 11:50] LABS: Glucose - Point of Care 221 mg/dl (70-99)
[2024-02-24 12:59] VITALS: BP 122/62
[2024-02-24] MEDS: NOVOLOG FLEXPEN-MODERATE RESISTANCE 3 UNITS SC (13:00)
--- NOTE | 2024-02-24 13:01 | W.PN.HOSP.TC ---
Addendum entered and electronically signed by Kyle Lagunas MD 03/01/24 16:16:
Sepsis present on admission based on the SIRS criteria and active infection
Addendum entered and electronically signed by Kyle Lagunas MD 03/01/24 15:58:
Lab bed call me in the later part of the week for positive blood culture and seems to be finalized now showing Peptostreptococcus in 1 out of 2 bottles from admission. Suspect all related to his tooth infection. He was sent on
penicillins-Augmentin which she should take care of it.
Left a message to the patient today just to make sure things are going okay and he had followed up with us dentist.
Original Note:
Today's Communication/Plan
-
DC
Assessment / Plan
Assessment / Plan
79 y.o male with right lower molar dental abscess with signs of systemic infection. Febrile to 103 at home with rigors and chills. No leukocytosis. CT scan c/w the abscess.
PLAN:
1. Dental Abscess -
- Resolved fevers ; wbc ok; Blood cx pending.
- on IV unasyn 3g q 12 (renal dosing) to cover strep anginosus and anaerobes
- OMFS input , Panelipase xray noted - no indication for surgery -recommends OP dentist follow up and removal of tooth
- switch to oral Augmentin on dc for a week/till seen by dentist
2. DM II -
-Recent hemoglobin in December was 7.8.
Continue with his home insulin regimen.
3. CKD4 - Diabetic renal disease. Cr at the upper limit of his trends.
- renal dose medications
- avoid nephrotoxins
- cw lasix once med rec is complete
$.Mild hyponatremia -no need for tx
4. HTN
- labetolol 300 mg bid with hold parameters
DVT PPX - heparin sq
Full Code
Anticipated Discharge: Today
Subjective/Interval History
-
Date of Service: February 24, 2024
No further fevers.
Feels better.
Improved tooth/gum pain.
Objective Data
-
Labs:
Laboratory Results
02/24/24
06:24
Sodium 132 L
Potassium 4.3
Chloride 106
Carbon Dioxide 22
BUN 55 H
Creatinine 2.7 H
Glucose 121 H
Calcium 8.7
Vital Signs:
Vital Signs
Temp Pulse Resp BP Pulse Ox
98 F 74 18 122/62 95
02/24/24 12:59 02/24/24 12:59 02/24/24 12:59 02/24/24 12:59 02/24/24 12:59
I&O
02/23/24 02/24/24 02/25/24
06:59 06:59 06:59
Intake Total 960 / 960 870 / 870
Balance 960 / 960 870 / 870
Review of Systems
-
Respiratory: Denies Trouble Breathing
Cardiac: Denies Chest Pain
Abdomen/GI: Denies Nausea or Vomiting
Neuro: Denies Dizzy
Physical Exam
-
General: No Apparent Distress
HEENT: Other (improved right lower gum swelling around the incisor/bicuspid area)
Cardiac: Regular Rhythm and S1/S2
Neuro: AO x 3
Data Reviewed
-
Labs: Labs Reviewed by me
--- NOTE | 2024-02-24 13:09 | W.DS.TRANS ---
DC Summary - [employer]
-
Discharge Instructions:
Discharge Diagnosis/Procedures Right lower bicuspid tooth infection
Diet Diabetic, Carb Controlled
Activity As tolerated
Driving Restrictions As prior to admission
Instructions:
Stand-Alone Forms:
Changes to Home Medications: Yes
Discharge Medications:
DC Medications w/original date entered in [employer]
acetaminophen 500 mg tablet (Tylenol Extra Strength) 1,000 mg PO DAILYPRN PRN mild pain 01/22/21
aspirin 81 mg tablet,delayed release 81 mg PO QPM Blood clot prevention/tx 01/22/21
atorvastatin 40 mg tablet 40 mg PO HS High cholesterol 01/22/21
cholecalciferol (vitamin D3) 25 mcg (1,000 unit) tablet 1,000 units PO DAILY Supplement 01/22/21
furosemide 40 mg tablet 40 mg PO DAILY Fluid retention/Swelling 01/22/21
insulin glargine 100 unit/mL (3 mL) subcutaneous pen (Lantus Solostar U-100 Insulin) 40 units SC BID Diabetes 01/22/21
insulin lispro 100 unit/mL subcutaneous pen (Humalog KwikPen (U-100) Insulin) 30 units SC BID@0800,1200 Diabetes 01/22/21
insulin lispro 100 unit/mL subcutaneous pen (Humalog KwikPen (U-100) Insulin) 60 units SC QPM Diabetes 01/22/21
labetalol 300 mg tablet 300 mg PO BID Blood pressure 01/22/21
potassium citrate 10 mEq (1,080 mg) tablet,extended release 10 meq PO BID Electrolyte Repletion 01/22/21
terazosin 10 mg capsule (Hytrin) 10 mg PO DAILY prostate 01/22/21
acetaminophen 325 mg tablet 650 mg (2 x 325 mg) PO Q4HPRN PRN mild pain/CHAVEZ/temp> 100.4F #1 tab 02/24/24
amoxicillin 500 mg-potassium clavulanate 125 mg tablet (Augmentin) 1 tab PO BID #14 tabs 02/24/24
Home Medication Changes
New med -augmentin
Pending Results: No
--- NOTE | 2024-02-24 13:13 | CM ---
MD entered order for discharge.
Spoke with Nona and patient .Both said ready for discharge.
will drive him home.
Offered VN he declined need.
He said he will have his root canal done with week.
PLAN Home no needs
--- NOTE | 2024-02-24 13:27 | PN.CDI ---
CDI
- -
CDI:
Physician Documentation Request
Admit Date: 02/22/24 23:17
Dear Doctor Bebo,
Clinical Indicators:
Patient admitted with right tooth infection.
02/21 H & P, 'right lower molar dental abscess with signs of systemic infection. Febrile to 103 at home with rigors and chills.'
Lactic Acid on admission:
02/22/24
18:58
Lactic Acid 3.8 H
HR/RR trend on admission:
02/22/24
19:00 02/22/24
19:15 02/22/24
20:30
Pulse 102 96 92
Resp Rate 22 24 24
02/22/24
21:00 02/22/24
21:30
Pulse 91 90
Resp Rate 24 25
Please clarify which of the following most accurately describes the status of the patient's infection:
Sepsis, POA
- Systemic manifestations of infection, with 2 or more SIRS criteria which include:
- Fever >100.4 degrees F or hypothermia < 96.8 degrees F
- Leukocytosis - WBC > 12,000 or leukopenia - WBC < 4,000 or > 10% bands
- Tachycardia > 90 beats per minute
- Tachypnea - RR > 20 breaths per minute or PaCO2 , 32mmHg
Source: Merck Manual 2013
Severe Sepsis, POA
Tooth Infection Only, Without Systemic Illness
Other, please specify
Use of terms such as suspected, likely, concern for, or probable (associated with a specific diagnosis that is being evaluated, monitored, or treated as if it exists) are acceptable and can be coded in the inpatient setting, when documented at the
time of discharge.
Thank you,
HUGO Gray RN
CDI Specialist
available via tiger text
Please use your independent medical judgment in providing your response.
--- NOTE | 2024-03-08 10:06 | OID.L.PAT ---
Pulmonary Nodule Pat Letter
- -
03/08/24
SHAILESH BUSH
[address] [facility]
[place] [id number]
Dear SHAILESH,
A pulmonary nodule was seen on an imaging study done by [facility]. This was reviewed by the [facility] Pulmonary Nodule Advisory Board and the following recommendation was made:
Recommendation: Follow up CT Chest - now
If you have any questions, please do not hesitate to contact your primary care physician. If you are in need of a Physician, you can go to [email or web address] and click on 'Find a Provider'. Type 'Family Medicine' in the search.
Oncology Nurse Navigator
[facility]
[phone]
--- NOTE | 2024-03-08 10:07 | OID.L.REC ---
Pulmonary Nodule Follow Up
- Recommendation
03/08/24
Pulmonary Nodule Review Recommendations
Your patient, SHAILESH BUSH, had a pulmonary nodule seen on an imaging study done on 02/22/24 in the [facility] Emergency Room.
This was reviewed by the [facility] Pulmonary Nodule Advisory Board and the following recommendation was made:
Recommendation: Follow up CT Chest - now
If you have any questions please do not hesitate to contact us.
Sincerely,
Oncology Nurse Navigator
[facility]
[phone]
== END 2024-02-24 13:51 | disposition home or self-care (01) | DRG 872 ==
LOC: 4 EAST ACU 23:17
PROVIDERS: Physician Assistant; ADMITTING PHYSICIAN Internal Medicine; ATTENDING PHYSICIAN Internal Medicine; CONSULT PHYSICIAN Dentist Oral and Maxillofacial Surgery; EMERGENCY PHYSICIAN Student in an Organized Health Care Education/Training Program; FAMILY PHYSICIAN Family Medicine; OTHER PHYSICIAN Dentist Oral and Maxillofacial Surgery
DX: A41.9 Sepsis, unspecified organism (principal); N18.4 Chronic kidney disease, stage 4 (severe); K12.2 Cellulitis and abscess of mouth; E87.1 Hypo-osmolality and hyponatremia; Z68.41 Body mass index [BMI] 40.0-44.9, adult; E11.22 Type 2 diabetes mellitus with diabetic chronic kidney disease; E66.01 Morbid (severe) obesity due to excess calories; I12.9 Hypertensive chronic kidney disease with stage 1 through stage 4 chronic kidney disease, or unspecified chronic kidney disease; I87.8 Other specified disorders of veins; E78.00 Pure hypercholesterolemia, unspecified; K21.9 Gastro-esophageal reflux disease without esophagitis; K04.7 Periapical abscess without sinus; K02.9 Dental caries, unspecified; Z11.52 Encounter for screening for COVID-19; Z79.4 Long term (current) use of insulin; Z79.82 Long term (current) use of aspirin
CPT/HCPCS: 70355; 70486; 71046; 80048; 80053; 81003; 81015; 82962; 83605; 85025; 85027; 87040; 87205; 87502; 87811; 96361; 96374; 99285

== ENCOUNTER → 2024-03-23 14:47 | Outpatient (REF) | payer MEDICARE, OTHER, SELFPAY | LOC: HWRAD 14:47 | PROVIDERS: ATTENDING PHYSICIAN Family Medicine | DX: R91.1 Solitary pulmonary nodule (principal) | CPT/HCPCS: 71250 ==

== ENCOUNTER → 2024-04-12 06:31 | Outpatient (REF) | payer MEDICARE, OTHER, SELFPAY ==
[2024-04-12 08:05] LABS: Calcium 9.5 mg/dl (8.4-10.2)
[2024-04-12 08:06] LABS: ALT (SGPT) 15 U/L (0-50); AST (SGOT) 17 U/L (17-59); Albumin 3.9 g/dl (3.5-5.0); Alkaline Phosphatase 40 U/L (38-126); Blood Urea Nitrogen 51 mg/dl (9-20); Calcium 9.5 mg/dl (8.4-10.2); Carbon Dioxide 23 mmol/L (22-30); Chloride 107 mmol/L (98-107); Glucose 111 mg/dl (70-99); HDL Cholesterol 34 mg/dl; LDL Cholesterol, Calculated 85 mg/dl; Phosphorus 3.7 mg/dl (2.5-4.5); Potassium 4.6 mmol/L (3.5-5.1); Sodium 140 mmol/L (135-145); Total Bilirubin 0.6 mg/dl (0.2-1.3); Total Cholesterol 167 mg/dl (50-199); Total Protein 6.2 g/dl (6.3-8.2); Triglyceride 242 mg/dl (10-149); Very Low Density Lipoprotein 48 mg/dl (0-30); eGFR 22.96
[2024-04-12 12:10] LABS: Glycohemoglobin (HgbA1c) 7.8 % (4.0-5.6)
[2024-04-13 11:13] LABS: Intact PTH 247.7 pg/ml (13.6-85.8)
== END ==
LOC: REG 06:31
PROVIDERS: ATTENDING PHYSICIAN Specialist; FAMILY PHYSICIAN Family Medicine
DX: N20.0 Calculus of kidney (principal); E11.22 Type 2 diabetes mellitus with diabetic chronic kidney disease; N18.4 Chronic kidney disease, stage 4 (severe); E78.2 Mixed hyperlipidemia
CPT/HCPCS: 36415; 80053; 80061; 83036; 83970; 84100

== ENCOUNTER → 2024-07-07 07:37 | Outpatient (REF) | payer MEDICARE, OTHER, SELFPAY ==
[2024-07-07 09:01] LABS: % Basophils 0.6 % (0-2); % Eosinophils 2.5 % (0-6); % Immature Granulocytes 0.3 % (0-0.5); % Lymphocytes 27.7 % (20.5-51.1); % Monocytes 14.5 % (1.7-9.3); % Neutrophils 54.4 % (42.2-75.2); Absolute Eosinophils 0.2 10^3/uL (0-0.7); Absolute Lymphocytes 1.8 10^3/uL (1.2-3.4); Absolute Monocytes 0.9 10^3/uL (0.1-0.6); Absolute Neutrophils 3.5 10^3/uL (1.4-6.5); Hemoglobin 11.9 g/dL (13.0-18.0); Mean Corpuscular Hgb 32.8 pg (27.0-31.0); Mean Corpuscular Volume 96.4 fL (80.0-94.0); Mean Platelet Volume 10.2 fL (7.4-10.4); Nucleated Red Blood Cells % 0 % (-); Platelet Count 167 10^3/uL (130-400); Red Blood Cell Count 3.63 10^6/uL (4.70-6.10); Red Cell Dist. Width 13.2 % (11.5-14.5); White Blood Cell Count 6.5 10^3/uL (4.8-10.8)
[2024-07-07 09:22] LABS: Microalbumin, Random Urine 3.4 mg/dl (0.6-1.7)
[2024-07-07 10:51] LABS: Glycohemoglobin (HgbA1c) 8.1 % (4.0-5.6)
[2024-07-07 11:00] LABS: ALT (SGPT) 19 U/L (0-50); AST (SGOT) 20 U/L (17-59); Albumin 4.2 g/dl (3.5-5.0); Alkaline Phosphatase 50 U/L (38-126); Blood Urea Nitrogen 55 mg/dl (9-20); Calcium 9.8 mg/dl (8.4-10.2); Carbon Dioxide 23 mmol/L (22-30); Chloride 102 mmol/L (98-107); Direct Bilirubin 0.3 mg/dl (0.0-0.4); Glucose 205 mg/dl (70-99); Iron 87 ug/dl (49-181); Potassium 5.1 mmol/L (3.5-5.1); Sodium 139 mmol/L (135-145); Total Bilirubin 0.5 mg/dl (0.2-1.3); Total Protein 6.2 g/dl (6.3-8.2); Uric Acid 9.5 mg/dl (3.5-8.5); eGFR 24.02
[2024-07-07 11:18] LABS: Percent Saturation 25 % (20-50); Total Iron Binding Capacity 335 ug/dl (261-462)
[2024-07-07 11:55] LABS: Vitamin B12 266 pg/ml (239-931)
== END ==
LOC: REG 07:37
PROVIDERS: ATTENDING PHYSICIAN Internal Medicine Medical Oncology; FAMILY PHYSICIAN Family Medicine
DX: N20.0 Calculus of kidney (principal); N18.4 Chronic kidney disease, stage 4 (severe); E11.22 Type 2 diabetes mellitus with diabetic chronic kidney disease; D64.9 Anemia, unspecified; D53.9 Nutritional anemia, unspecified
CPT/HCPCS: 36415; 80053; 82043; 82248; 82570; 82607; 83036; 83540; 83550; 84550; 85025

== ENCOUNTER → 2024-10-12 08:20 | Outpatient (REF) | payer MEDICARE, OTHER, SELFPAY ==
[2024-10-12 12:08] LABS: ALT (SGPT) 20 U/L (0-50); AST (SGOT) 20 U/L (17-59); Albumin 4.2 g/dl (3.5-5.0); Alkaline Phosphatase 37 U/L (38-126); Blood Urea Nitrogen 54 mg/dl (9-20); Calcium 9.4 mg/dl (8.4-10.2); Carbon Dioxide 22 mmol/L (22-30); Chloride 105 mmol/L (98-107); Glucose 166 mg/dl (70-99); HDL Cholesterol 37 mg/dl; LDL Cholesterol, Calculated 133 mg/dl; Potassium 5.4 mmol/L (3.5-5.1); Sodium 139 mmol/L (135-145); Total Bilirubin 0.4 mg/dl (0.2-1.3); Total Cholesterol 225 mg/dl (50-199); Total Protein 6.4 g/dl (6.3-8.2); Triglyceride 279 mg/dl (10-149); Very Low Density Lipoprotein 55 mg/dl (0-30); eGFR 22.96
[2024-10-12 13:43] LABS: Glycohemoglobin (HgbA1c) 8.1 % (4.0-5.6)
== END ==
LOC: REG 08:20
PROVIDERS: ATTENDING PHYSICIAN Family Medicine; REFERRING PHYSICIAN Allergy & Immunology
DX: E11.22 Type 2 diabetes mellitus with diabetic chronic kidney disease (principal); E78.2 Mixed hyperlipidemia
CPT/HCPCS: 36415; 80053; 80061; 83036

== ENCOUNTER 2025-01-07 18:24 | Emergency (ER) | payer MEDICARE, OTHER, SELFPAY ==
[2025-01-07 18:25] VITALS: BMI 41.9
[2025-01-07 18:35] VITALS: BP 143/68
[2025-01-07 18:36] LABS: Glucose - Point of Care 49 mg/dl (70-99)
[2025-01-07 18:47] LABS: Glucose - Point of Care 65 mg/dl (70-99)
[2025-01-07 18:59] LABS: Glucose - Point of Care 105 mg/dl (70-99)
--- NOTE | 2025-01-07 19:21 | ED.GENMED ---
History of Present Illness
General
Chief Complaint: Blood Sugar Problem
Time Seen by Provider: 01/07/25 18:47
History of Present Illness
History of Present Illness:
79-year-old male, insulin-dependent diabetic, presenting to the emergency department for hypoglycemic episode. Patient reports for the past 36 hours he has had a GI bug with nausea, vomiting, diarrhea. The vomiting has resolved, however is still
having diarrhea. He took Imodium today, with some improvement in his symptoms. Denies abdominal pain. He has had overall decreased p.o. intake. He reports that he ate a small lunch this afternoon, keep himself 40 units of insulin. He then had
half a turkey sandwich and gave himself an additional 40 units of insulin. Prior to arrival, patient became unresponsive on the couch. Patient notes history of hypoglycemic episodes in the past. witnessed the episode, tried to give him a
sugar pill without success. On medics arrival, noted to have a sugar in the 20s. Patient received glucagon and started on D10. Patient on arrival notes that he is feeling much better. Denies any chest pain, difficulty breathing abdominal pain or
additional acute medical complaints
Past History
Past History
ED Past Medical History: GERD, HTN, Hypercholesterolemia, IDDM and Other (Hemorrhoids)
ED Past Surgical History: Other (Hemorrhoidectomy, vasectomy, tonsillectomy, cataracts)
Social History
Tobacco: Non-smoker
Alcohol: Occasional
Personal:
Living: with family
Family History
Family History: Diabetes and CAD
Phy Exam
Physical Exam
Physical Exam:
General: Well-appearing, no clinical signs of dehydration, nontoxic and in no acute distress
HEENT: protecting airway
Neck: appears supple
CV: Normal heart rate, regular rhythm, no evidence of cyanosis
Resp: No accessory muscle use, no increased work of breathing
Abd: Soft and non-distended, no tenderness to palpation
Extremities: No deformities, no swelling, no erythema
Neuro: alert, no focal neurologic deficit
: deferred
Rectal: deferred
Psych: Normal affect
Skin: Intact
Course
Orders/Labs/Results
Orders:
Orders
01/07/25 18:56
Complete Blood Count/With Diff Urgent
Comprehensive Metabolic Panel Urgent
Abnormal Lab Results
01/07/25 01/07/25 01/07/25
18:30 18:46 18:56
RBC 3.45 L 10^6/uL
(4.70-6.10)
Hgb 11.7 L g/dL
(13.0-18.0)
Hct 34.7 L %
(39.0-52.0)
MCV 100.6 H fL
(80.0-94.0)
MCH 33.9 H pg
(27.0-31.0)
Absolute Monos (auto) 1.3 H 10^3/uL
(0.1-0.6)
Immature Gran % 0.6 H %
(0-0.5)
Monocytes % 20.7 H %
(1.7-9.3)
BUN 55 H mg/dl
(9-20)
Creatinine 2.7 H mg/dL
(0.7-1.3)
Glucose 55 L* mg/dl
(70-99)
POC Glucose 49 L* mg/dl 65 L mg/dl
(70-99) (70-99)
01/07/25 01/07/25 01/07/25
18:58 19:22 19:46
RBC
Hgb
Hct
MCV
MCH
Absolute Monos (auto)
Immature Gran %
Monocytes %
BUN
Creatinine
Glucose
POC Glucose 105 H mg/dl 123 H mg/dl 123 H mg/dl
() () ()
01/07/25 01/07/25
: 21:06
RBC
Hgb
Hct
MCV
MCH
Absolute Monos (auto)
Immature Gran %
Monocytes %
BUN
Creatinine
Glucose
POC Glucose 113 H mg/dl 116 H mg/dl
() ()
01/07/25 18:56
01/07/25 18:56
Vital Signs
Initial and Last Documented VS:
Initial Vital Signs
Pulse Resp BP Pulse Ox
64 22 143/68 96
01/07/25 18:35 01/07/25 18:35 01/07/25 18:35 01/07/25 18:35
Last Documented Vital Signs
Pulse Resp BP Pulse Ox
62 20 143/68 93
01/07/25 19:27 01/07/25 19:27 01/07/25 18:35 01/07/25 19:27
MDM/Problems Addressed
MDM/Problems Addressed:
79-year-old male with history of insulin-dependent diabetes presenting for hypoglycemia. Vital signs on arrival are normal.
On exam patient is resting comfortably, no acute distress or discomfort. Patient's sugar on arrival in the low 60s. Patient given oral glucose. Patient notes that he has had hypoglycemic episodes in the past. Patient has been having symptoms of
a gastroenteritis in the past 36 hours. Suspect volume depletion, and patient administered insulin when he had not taken enough carbohydrates. At this time patient is hemodynamically stable. No signs of trauma. No report of fall or head strike.
Will continue to closely monitor glucose, while in oral glucose supplementation. Patient is still receiving D10. No tenderness to the abdomen, without concern for serious intra-abdominal process or infection.
21:50 -patient's blood glucose has been stable while in the hospital. He continues to report that he is feeling better. Patient's renal function is high, however appears chronic. Feel stable for discharge with continued outpatient follow-up and
management of his diabetes. Advise always checking his sugar before giving insulin. Return precautions discussed and patient verbalized understanding
*Critical Care Note
Total Time (30-74mins, 75-104mins- exclusive of procedures): Not Applicable
ED Attending Note
-
Portions of this chart may have been created with voice recognition software.� Occasional wrong word or��sound alike� substitutions may have occurred due to the inherent limitations of voice recognition software.
Discharge Plan
Departure
Prescriptions:
No Action
furosemide 40 MG tablet
40 mg PO DAILY
atorvastatin 40 MG tablet
40 mg PO HS
aspirin 81 MG tablet,delayed release (DR/EC)
81 mg PO QPM
acetaminophen [Tylenol Extra Strength] 500 MG tablet
1,000 mg PO DAILYPRN PRN (Reason: mild pain)
potassium citrate 10 MEQ tablet extended release
10 meq PO BID
labetalol 300 MG tablet
300 mg PO BID
terazosin [Hytrin] 10 MG capsule
10 mg PO DAILY
insulin lispro [Humalog KwikPen Insulin] 100 UNIT/ML insulin pen
60 units SC QPM
Patient Comments:
dinner dose
insulin lispro [Humalog KwikPen Insulin] 100 UNIT/ML insulin pen
30 units SC BID@0800,1200
cholecalciferol (vitamin D3) 1,000 UNITS tablet
1,000 units PO DAILY
insulin glargine [Lantus Solostar U-100 Insulin] 300 UNITS/3 ML insulin pen
40 units SC BID
Patient Comments:
pt takes at 0600 and 1600
acetaminophen 325 mg Tablet
650 mg PO Q4HPRN PRN (Reason: mild pain/CHAVEZ/temp> 100.4F) Qty: 1 0RF
amoxicillin-pot clavulanate [Augmentin] 500-125 mg tablet
1 tab PO BID Qty: 14 0RF
Referrals:
Steven Spann MD [Family Provider] -
Interventions
Interventions:
*Risk Screen - Suicide Last Done: 01/07/25 19:02
*General Assessment Last Done: 01/07/25 19:02
*Neglect/Abuse Screening Last Done: 01/07/25 19:02
*ED COVID-19 Vaccine History Last Done: 01/07/25 19:02
ED- Neurological Assessment Last Done: 01/07/25 19:02
Discharge Date and Time
Print Language: BELARUSIAN
[2025-01-07 19:23] LABS: ALT (SGPT) 27 U/L (0-50); AST (SGOT) 26 U/L (17-59); Albumin 4.3 g/dl (3.5-5.0); Alkaline Phosphatase 52 U/L (38-126); Blood Urea Nitrogen 55 mg/dl (9-20); Carbon Dioxide 22 mmol/L (22-30); Chloride 102 mmol/L (98-107); Estimated Creatinine Clearance 28 ml/min; Glucose 55 mg/dl (70-99); Potassium 4.3 mmol/L (3.5-5.1); Sodium 135 mmol/L (135-145); Total Bilirubin 0.8 mg/dl (0.2-1.3); Total Protein 6.4 g/dl (6.3-8.2); eGFR 22.96
[2025-01-07 19:23] LABS: Glucose - Point of Care 123 mg/dl (70-99)
[2025-01-07 19:33] LABS: Hematocrit 34.7 % (39.0-52.0); Hemoglobin 11.7 g/dL (13.0-18.0); Mean Corp Hgb Conc. 33.7 g/dL (33.0-37.0); Mean Corpuscular Hgb 33.9 pg (27.0-31.0); Mean Corpuscular Volume 100.6 fL (80.0-94.0); Mean Platelet Volume 10.2 fL (7.4-10.4); Platelet Count 147 10^3/uL (130-400); Red Blood Cell Count 3.45 10^6/uL (4.70-6.10); Red Cell Dist. Width 14.3 % (11.5-14.5); White Blood Cell Count 6.5 10^3/uL (4.8-10.8)
[2025-01-07 19:34] LABS: % Basophils 0.5 % (0-2); % Eosinophils 1.1 % (0-6); % Immature Granulocytes 0.6 % (0-0.5); % Lymphocytes 25.3 % (20.5-51.1); % Monocytes 20.7 % (1.7-9.3); % Neutrophils 51.8 % (42.2-75.2); Absolute Eosinophils 0.1 10^3/uL (0-0.7); Absolute Lymphocytes 1.6 10^3/uL (1.2-3.4); Absolute Monocytes 1.3 10^3/uL (0.1-0.6); Absolute Neutrophils 3.4 10^3/uL (1.4-6.5); Nucleated Red Blood Cells % 0 % (-)
[2025-01-07 19:47] LABS: Glucose - Point of Care 123 mg/dl (70-99)
[2025-01-07 20:27] LABS: Glucose - Point of Care 113 mg/dl (70-99)
[2025-01-07 21:07] LABS: Glucose - Point of Care 116 mg/dl (70-99)
[2025-01-07 21:52] LABS: Glucose - Point of Care 177 mg/dl (70-99)
== END 2025-01-07 22:05 | disposition home or self-care (01) ==
LOC: EMR 18:24
PROVIDERS: EMERGENCY PHYSICIAN Student in an Organized Health Care Education/Training Program; FAMILY PHYSICIAN Family Medicine
DX: E11.649 Type 2 diabetes mellitus with hypoglycemia without coma (principal); K21.9 Gastro-esophageal reflux disease without esophagitis; I10 Essential (primary) hypertension; E78.00 Pure hypercholesterolemia, unspecified; Z82.49 Family history of ischemic heart disease and other diseases of the circulatory system; Z83.3 Family history of diabetes mellitus; Z87.19 Personal history of other diseases of the digestive system
CPT/HCPCS: 99283; 80053; 82962; 85025

== ENCOUNTER → 2025-01-12 06:51 | Outpatient (REF) | payer MEDICARE, OTHER, SELFPAY ==
[2025-01-12 08:14] LABS: Albumin 4.1 g/dl (3.5-5.0); Blood Urea Nitrogen 46 mg/dl (9-20); Calcium 9.4 mg/dl (8.4-10.2); Carbon Dioxide 23 mmol/L (22-30); Chloride 102 mmol/L (98-107); Glucose 244 mg/dl (70-99); Phosphorus 3.7 mg/dl (2.5-4.5); Potassium 5.4 mmol/L (3.5-5.1); Sodium 136 mmol/L (135-145); eGFR 25.18
[2025-01-12 09:20] LABS: Uric Acid 4.3 mg/dl (3.5-8.5)
[2025-01-12 10:20] LABS: Intact PTH 282.9 pg/ml (13.6-85.8)
== END ==
LOC: REG 06:51
PROVIDERS: ATTENDING PHYSICIAN Specialist; FAMILY PHYSICIAN Family Medicine
DX: N20.0 Calculus of kidney (principal)
CPT/HCPCS: 36415; 80069; 83970; 84550

== ENCOUNTER → 2025-02-07 07:25 | Outpatient (REF) | payer MEDICARE, OTHER, SELFPAY ==
[2025-02-07 08:56] LABS: ALT (SGPT) 21 U/L (0-50); AST (SGOT) 18 U/L (17-59); Albumin 4.1 g/dl (3.5-5.0); Alkaline Phosphatase 53 U/L (38-126); Blood Urea Nitrogen 49 mg/dl (9-20); Calcium 9.5 mg/dl (8.4-10.2); Carbon Dioxide 23 mmol/L (22-30); Chloride 106 mmol/L (98-107); Glucose 176 mg/dl (70-99); Potassium 5.1 mmol/L (3.5-5.1); Sodium 140 mmol/L (135-145); Total Bilirubin 0.6 mg/dl (0.2-1.3); Total Protein 6.1 g/dl (6.3-8.2); eGFR 25.02
[2025-02-07 10:37] LABS: Glycohemoglobin (HgbA1c) 8.2 % (4.0-5.6)
== END ==
LOC: REG 07:25
PROVIDERS: ATTENDING PHYSICIAN Family Medicine
DX: E11.22 Type 2 diabetes mellitus with diabetic chronic kidney disease (principal)
CPT/HCPCS: 36415; 80053; 83036

== ENCOUNTER → 2025-03-22 14:14 | Outpatient (REF) | payer MEDICARE, OTHER, SELFPAY | LOC: EMG 14:14 | PROVIDERS: ATTENDING PHYSICIAN Orthopaedic Surgery Hand Surgery; FAMILY PHYSICIAN Family Medicine | DX: R20.0 Anesthesia of skin (principal); G56.02 Carpal tunnel syndrome, left upper limb | CPT/HCPCS: 95886; 95909 ==

== ENCOUNTER → 2025-04-12 07:00 | Outpatient (REF) | payer MEDICARE, OTHER, SELFPAY ==
[2025-04-12 08:11] LABS: Albumin 4.1 g/dl (3.5-5.0); Blood Urea Nitrogen 53 mg/dl (9-20); Calcium 9.2 mg/dl (8.4-10.2); Carbon Dioxide 23 mmol/L (22-30); Chloride 110 mmol/L (98-107); Glucose 160 mg/dl (70-99); Phosphorus 4.1 mg/dl (2.5-4.5); Potassium 5.3 mmol/L (3.5-5.1); Sodium 142 mmol/L (135-145); eGFR 22.82
== END ==
LOC: REG 07:00
PROVIDERS: ATTENDING PHYSICIAN Specialist
DX: N20.0 Calculus of kidney (principal); E11.8 Type 2 diabetes mellitus with unspecified complications; I10 Essential (primary) hypertension
CPT/HCPCS: 36415; 80069

== ENCOUNTER → 2025-05-31 09:44 | Outpatient (REF) | payer MEDICARE, OTHER, SELFPAY | LOC: RAD 09:44 | PROVIDERS: ATTENDING PHYSICIAN Family Medicine | DX: M54.6 Pain in thoracic spine (principal) | CPT/HCPCS: 72072 ==

== ENCOUNTER → 2025-08-25 08:54 | Outpatient (REF) | payer MEDICARE, OTHER, SELFPAY ==
[2025-08-25 10:28] LABS: Hematocrit 36.5 % (39.0-52.0); Hemoglobin 11.9 g/dL (13.0-18.0); Mean Corp Hgb Conc. 32.6 g/dL (33.0-37.0); Mean Corpuscular Volume 101.4 fL (80.0-94.0); Nucleated Red Blood Cells % 0 % (-); Platelet Count 157 10^3/uL (130-400); Red Cell Dist. Width 13.5 % (11.5-14.5)
[2025-08-25 10:49] LABS: Glycohemoglobin (HgbA1c) 8.6 % (4.0-5.6)
[2025-08-25 11:00] LABS: ALT (SGPT) 21 U/L (0-50); AST (SGOT) 17 U/L (17-59); Albumin 4.0 g/dl (3.5-5.0); Alkaline Phosphatase 48 U/L (38-126); Blood Urea Nitrogen 57 mg/dl (9-20); Calcium 9.4 mg/dl (8.4-10.2); Carbon Dioxide 26 mmol/L (22-30); Chloride 105 mmol/L (98-107); Glucose 234 mg/dl (70-99); HDL Cholesterol 35 mg/dl; LDL Cholesterol, Calculated 103 mg/dl; Potassium 5.5 mmol/L (3.5-5.1); Sodium 137 mmol/L (135-145); Total Protein 6.2 g/dl (6.3-8.2); Very Low Density Lipoprotein 44 mg/dl (0-30); eGFR 25.02
== END ==
LOC: REG 08:54
PROVIDERS: ATTENDING PHYSICIAN Family Medicine; REFERRING PHYSICIAN Specialist
DX: E11.22 Type 2 diabetes mellitus with diabetic chronic kidney disease (principal); D64.9 Anemia, unspecified; E78.2 Mixed hyperlipidemia
CPT/HCPCS: 36415; 80053; 80061; 83036; 85025